=== PATIENT | female | born 1985 | race Asian ===

== ENCOUNTER 2020-05-25 17:20 | Emergency (ER) | payer OTHER ==
[2020-05-25 17:28] VITALS: BP 172/91
[2020-05-25 17:53] LABS: Basophils # (Auto) 0.1 K/mm3 (0.0-0.1); Basophils % (Auto) 0.6 % (0.0-1.8); Eosinophils # (Auto) 0.3 K/mm3 (0.0-0.4); Eosinophils % (Auto) 2.9 % (0.0-4.3); Hematocrit 39.2 % (30.3-42.9); Hemoglobin 13.3 gm/dl (10.1-14.3); Lymphocytes # (Auto) 3.1 K/mm3 (1.2-5.4); Lymphocytes % (Auto) 29.6 % (13.4-35.0); Mean Corpuscular HGB Conc 34 % (30-34); Mean Corpuscular Volume 88 fl (79-97); Monocytes % (Auto) 9.6 % (0.0-7.3); Platelet Count 250 K/mm3 (140-440); Red Blood Count 4.45 M/mm3 (3.65-5.03); Red Cell Distribution Width 13.1 % (13.2-15.2)
[2020-05-25 18:11] LABS: Alanine Aminotransferase 16 units/L (7-56); Albumin 4.3 g/dL (3.9-5); Blood Urea Nitrogen 15 mg/dL (7-17); Calcium 9.5 mg/dL (8.4-10.2); Hemolysis Index 9
[2020-05-25 18:12] LABS: BUN/Creatinine Ratio 21
--- NOTE | 2020-05-25 18:43 | XRay Report ---
CHEST PA AND LATERAL VIEWS INDICATION: palpitations. COMPARISON: None FINDINGS: Support devices: None Heart: Normal Lungs/Pleura: No acute pulmonary or pleural findings. IMPRESSION: 1. No active disease. Signer Name: Izaiah Rangel MD Signed: 05/25/2020 6:38 PM Workstation Name: [id number]
--- NOTE | 2020-05-25 20:56 | Emergency Department Report ---
ED Palpitations HPI - General Chief Complaint: Arrhythmia/Palpitations Stated Complaint: FLUTTERING IN CHEST Time Seen by Provider: 05/25/20 20:44 Source: patient Mode of arrival: Ambulatory Limitations: No Limitations - History of Present Illness Initial Comments: CC: chest fluttering, hand tingling for 2 weeks HPI: This is a 35 yo female with hx of HTN who presents with chest fluttering and hand tingling. No pain. NO fever. NO shortness of breath. No cough.Patient just wanted to make sure that nothing dangerous is going on. Mother has history of hypertension. Father has history of kidney disease and diabetes mellitus. Patient takes amlodipine hydrochlorothiazide for her antihypertensive medications. She does not take oral contraceptives. She has IUD in place. -: Gradual, week(s) (2 weeks) Context: occured during rest Arrythmia History: other (no hx of arrhythmia) Associated Symptoms: other (hand tingling) - Related Data Allergies Allergy/AdvReac Type Severity Reaction Status Date / Time Penicillins Allergy Hives Verified 05/25/20 17:24 ED Review of Systems ROS: Stated complaint: FLUTTERING IN CHEST Other details as noted in HPI Comment: All other systems reviewed and negative Constitutional: denies: fever, malaise Respiratory: denies: cough, shortness of breath Cardiovascular: palpitations Neurological: paresthesias. denies: headache, weakness ED Past Medical Hx - Past Medical History Previous Medical History?: Yes Hx Hypertension: Yes - Surgical History Past Surgical History?: No - Social History Smoking Status: Never Smoker Substance Use Type: None ED Physical Exam - General Limitations: No Limitations General appearance: alert, in no apparent distress - Head Head exam: Present: atraumatic, normocephalic - Eye Eye exam: Present: normal appearance - ENT ENT exam: Present: mucous membranes moist - Neck Neck exam: Present: normal inspection, full ROM - Respiratory Respiratory exam: Present: normal lung sounds bilaterally. Absent: respiratory distress, wheezes, rales, rhonchi, stridor - Cardiovascular Cardiovascular Exam: Present: regular rate, normal rhythm, normal heart sounds. Absent: systolic murmur, diastolic murmur, rubs, gallop - GI/Abdominal GI/Abdominal exam: Present: soft, normal bowel sounds. Absent: distended, tenderness, guarding, rebound - Extremities Exam Extremities exam: Present: normal inspection - Neurological Exam Neurological exam: Present: alert, oriented X3 - Psychiatric Psychiatric exam: Present: normal affect, normal mood - Skin Skin exam: Present: warm, dry, intact, normal color. Absent: rash ED Course Vital Signs 05/25/20 17:27 Temperature 99.0 F Pulse Rate 99 H Respiratory 18 Rate Blood Pressure 172/91 O2 Sat by Pulse 100 Oximetry ED Medical Decision Making - Lab Data Result diagrams: 05/25/20 17:37 05/25/20 17:37 Laboratory Results - last 24 hr 05/25/20 05/25/20 05/25/20 17:37 17:37 17:37 WBC 10.6 RBC 4.45 Hgb 13.3 Hct 39.2 MCV 88 MCH 30 MCHC 34 RDW 13.1 L Plt Count 250 Lymph % (Auto) 29.6 [place] % (Auto) 9.6 H Eos % (Auto) 2.9 Baso % (Auto) 0.6 Lymph # (Auto) 3.1 [place] # (Auto) 1.0 H Eos # (Auto) 0.3 Baso # (Auto) 0.1 Seg Neutrophils % 57.3 Seg Neutrophils # 6.1 Sodium 136 L Potassium 3.6 Chloride 100.8 Carbon Dioxide 23 Anion Gap 16 BUN 15 Creatinine 0.7 Estimated GFR > 60 BUN/Creatinine Ratio 21 Glucose 115 H Calcium 9.5 Magnesium 1.90 Total Bilirubin 0.30 AST 22 ALT 16 Alkaline Phosphatase 95 Troponin T < 0.010 Total Protein 7.7 Albumin 4.3 Albumin/Globulin Ratio 1.3 HCG, Qual Negative - EKG Data -: EKG Interpreted by Tx EKG shows normal: sinus rhythm, axis, intervals, QRS complexes, ST-T waves Rate: normal - EKG Data Interpretation: normal EKG 05/25/20 21:23 EKG obtained 1730 EKG interpreted by me Rate 95 bpm normal sinus rhythm normal rate normal axis normal intervals no ST elevation no ST-T signs of ischemia normal EKG - Radiology Data Radiology results: report reviewed Cxr pa/lateral: no acute findings - Medical Decision Making 1. palpitations: No indication of dangerous lethal arrhythmia without history of syncope, chest pain, PERC negative suspect PVC recommend rest. Patient works 2 jobs. 3 hand tingling bilateral: No evidence of CVA atypical migraine. Carpal tunnel is consideration. CBC chemistry EKG chest radiograph all within normal limits. I encouraged follow-up with outpatient medicine physician. She receives primary care at [facility]. She has next physical scheduled for May Critical care attestation.: If time is entered above; I have spent that time in minutes in the direct care of this critically ill patient, excluding procedure time. ED Disposition Clinical Impression: Palpitations, Numbness and tingling in both hands Disposition: [id number] TO HOME OR SELFCARE Is pt being admited?: No Does the pt Need Aspirin: No Condition: Stable Instructions: Palpitations, Paresthesia, [id number] Additional Instructions: Please take your discharge paperwork to your next primary care appointment. Referrals: PRIMARY CARE, [Primary Care Provider] - 3-5 Days Forms: Work/School Release Form(ED)
== END 2020-05-25 21:34 | disposition home or self-care (01) ==
LOC: ED 17:20
DX: R00.2 Palpitations (principal); R20.0 Anesthesia of skin; R20.2 Paresthesia of skin; I10 Essential (primary) hypertension; Z88.0 Allergy status to penicillin
CPT/HCPCS: 36415; 71046; 80053; 83735; 84484; 84703; 85025